=== PATIENT | male | born 1945 | race Caucasian/White ===

== ENCOUNTER 2019-09-03 10:31 | Outpatient (CLI) | payer MEDICARE, OTHER, SELFPAY ==
[2019-09-04 15:22] LABS: COVID-19 RT-PCR Result NEGATIVE (Negative)
== END 2019-09-03 10:51 ==
PROVIDERS: Visit Provider Family Medicine
DX: Z03.818 Encounter for observation for suspected exposure to other biological agents ruled out (principal)
CPT/HCPCS: U0003

== ENCOUNTER 2020-12-23 21:20 | Outpatient (CLI) | payer MEDICARE, OTHER, SELFPAY ==
--- NOTE | 2020-12-23 | DI.RAD_ITS ---
Exam(s) XR HEEL LT OS CALCIS EXAM: XR HEEL LT OS CALCIS CLINICAL HISTORY: PLANTAR FASCITIS, M72.2, PAIN. TECHNIQUE: 2D digital imaging was performed. COMPARISON: No exams were available for comparison FINDINGS: BONES: No acute fracture is present. No bony destructive lesion is seen. There is a minimal enthesop hyte at the Achilles insertion on the calcaneus. There is a small spur at the plantar fascial insert ion. JOINTS: No dislocation present. SOFT TISSUE: Normal. IMPRESSION: Small heel spurs. DATA REPOSITORY: RADIATION DOSE DELIVERED:
== END 2020-12-23 21:40 ==
PROVIDERS: Visit Provider Family Medicine
DX: M72.2 Plantar fascial fibromatosis (principal); M77.32 Calcaneal spur, left foot
CPT/HCPCS: 73650

== ENCOUNTER 2023-12-10 12:54 | Emergency (ER) | payer OTHER, SELFPAY ==
[2023-12-10 13:04] VITALS: BP 123/70; PULSE 65; RESP 15; TEMP 36.3; O2SAT 96
--- NOTE | 2023-12-10 13:15 | DI.CT_ITS ---
Exam(s) CT LUMBAR SPINE WO EXAM: CT LUMBAR SPINE WO CLINICAL HISTORY: low back pain, eval fracture, stenosis. TECHNIQUE: Imaging Protocol: Axial computed tomography images with coronal and sagittal reformatted images were created and reviewed COMPARISON: No exams were available for comparison FINDINGS: Bones: The last intervertebral disc space is designated the L5/S1 level for the numbering purpose of this examination. The vertebral body heights are well maintained. Endplate osteophytes are noted throughout. Alignment is satisfactory. No fracture is seen. T12-L1: No disc herniations or bulges are present. L1-2: No disc herniations or bulges are present. L2-3: No disc herniations or bulges are present. L3-4: Minimal disc bulging. L4-5: mild loss of disc height. Vacuum phenomenon. Mild to moderate disc bulging. No significant central canal stenosis. Bilateral neural foraminal narrowing. L5-S1: Minimal disc bulging. The visualized SI joints and sacrum are well maintained. Soft Tissues: The paraspinal soft tissues are unremarkable. Prostate is enlarged. Mild bladder wa ll thickening. Atherosclerotic changes in the aorta and iliac arteries. IMPRESSION: No evidence of fracture. Degenerative disc changes at L 4 5 cause bilateral neural foraminal narrowing. RADIATION DOSE DELIVERED: Total DLP DATA REPOSITORY: All CT scans at this facility are submitted to the National Radiology Data Registry (NRDR) Dose Index Registry (DIR) with the [employer] (A[employer]). RADIATION OPTIMIZATION: All CT scans at this facility use at least one of these dose optimization te chniques: automated exposure control; mA and/or kV adjustment per patient size (includes targeted exa ms where dose is matched to clinical indication); or iterative reconstruction.
[2023-12-10] MEDS: Lidocaine 5% Patch 1 PATCH TP (13:35)
[2023-12-10] MEDS: Ketorolac 15 MG/ML VIAL IVP (13:35)
[2023-12-10] MEDS: Acetaminophen 500 MG TAB 1000 MG PO (13:35)
[2023-12-10 13:51] LABS: Abs Immature Grans 0.01 10^3/uL (0.0-0.06); Absolute Basophil Count 0.03 10^3/uL (0.0-0.2); Absolute Eosinophil Count 0.12 10^3/uL (0.0-0.7); Absolute Lymphocyte Count 1.92 10^3/uL (1.2-3.4); Absolute Neutrophil Count 2.42 10^3/uL (1.2-6.7); Basophils % 0.6 %; Eosinophils % 2.5 %; HCT 40.4 % (40.0-50.0); HGB 13.8 g/dL (13.5-17.5); Immature Grans % 0.2 %; MCH 31.4 pg (27.0-33.0); MCHC 34.2 % (32.0-36.0); MCV 92 fL (80-95); MPV 10.1 fL (8.0-11.0); Monocytes % 6.3 %; Neutrophils % 50.4 %; Platelet Count 167 10^3/uL (130-400); RBC 4.39 10^6/uL (4.36-5.78); RDW 11.9 % (11.8-14.1); RDW-SD 41.2 fL
--- NOTE | 2023-12-10 13:59 | ED.GENADUL_ITS ---
Discharge Plan Disposition Patient Disposition: Home Condition: Stable Discharge Details Clinical Impression: Back pain Primary Care Provider: Laurent Gordon ED Provider: Balbina Blackburn Home Meds and New Rx's Prescriptions: New methocarbamol 750 mg tablet 1,500 mg PO Q8H PRNQty: 10 0RF lidocaine 5 % adhesive patch,medicated 1 patch topical DAILY Qty: 30 0RF Rx Instructions: leave on most painful area for up to 12 hrs No Action atenolol 25 mg tablet 12.5 mg PO DAILY niacin 500 mg capsule, extended release 500 mg PO QHS Repatha SureClick 140 mg/mL pen injector 140 mg subcut Q2W collagen (bovine) 100 % powder in packet 1 packet topical DAILY cholecalciferol (vitamin D3) 10 mcg (400 unit) capsule 10 mcg PO DAILY B-complex with vitamin C Tablet 1 tab PO DAILY multivitamin [Daily Multi-Vitamin] 1 EACH tablet 1 ea PO DAILY aspirin [Aspir-81] 81 MG tablet,delayed release (DR/EC) 81 mg PO DAILY tamsulosin 0.4 MG capsule 0.4 mg PO DAILY lisinopril 10 MG tablet 10 mg PO DAILY Fish Oil 1 EACH capsule 1 ea PO BID rosuvastatin 20 mg tablet 20 mg PO DAILY Patient Comments: TAKE ONE TABLET BY MOUTH ONCE WEEKLY IF TOLERATED MAY INCREASE TO TWICE PER WEEK Discharge Instructions Instructions: Low Back Pain ED Additional Instructions: You were seen in the emergency department today for evaluation of low back pain. In our department you have a full physical examination performed, received medications for pain and had a CT scan performed. The CT scan shows stenosis and some degenerative changes but no fractures or other concerning findings. It is safe to go home and continue to take all of your medications as prescribed, and follow-up with the [facility]. Thank you for allowing us to be part of your care. HPI General Mode of arrival: ambulatory . Date/Time Provider Initiated Documentation: 12/10/23 13:15 . Limitations to Documentation: no limitations . Information obtained by: patient, family and old records reviewed . HPI Narrative: MDM: This is a 78-year-old male patient presenting for evaluation of 1 month of persistent low back pain. My differential includes but is not limited to lumbosacral strain, spinal stenosis, spondylosis/spinal nerve root compression. I did consider compression fracture and occult fracture, no specific trauma to suggest dislocation. The patient has no red flag symptoms or risk factors for cauda equina, spinal epidural abscess, osteomyelitis/discitis. The patient is without CVA tenderness or urinary symptoms to significantly increase my concern for nephrolithiasis, pyelonephritis/UTI, and has no abdominal tenderness or hemodynamic instability to increase my concern for aortic pathology. Will obtain basic laboratory studies to include CBC, CMP, and urinalysis. I did shared decision-making conversation with the patient regarding imaging, and at this time we will proceed with a Noncon CT scan of his lumbar spine to evaluate for any osseous abnormalities. I will provide him with a dose of Tylenol, Toradol, and a lidocaine patch for initial pain management. ED Course: I independently interpreted the laboratory studies, which show no s ignificant leukocytosis, anemia, or thrombocytopenia. The chemistry panel is without evidence of electrolyte abnormality, kidney dysfunction, or liver injury. Urinalysis is without evidence of infection, nor hematuria. I reviewed the patient's CT scan, which does show some changes in the L4/L5 disc space, radiologist read concerning for spinal stenosis and spondylosis, no acute infections or fractures identified by the radiologist. I provided the patient with a prescription for Robaxin and lidocaine patches, and at this time, the patient has had a full medical evaluation and is safe for discharge to home. They are hemodynamically stable, ambulatory, and tolerating PO. They are understanding of the follow-up plan and return precautions. They left our facility without incident. Balbina Blackburn MD HPI: This is a 78-year-old male patient with a past medical history significant for low back pain, rotator cuff tear, hyperlipidemia, presenting for evaluation of acute on chronic worsening of his low back pain. The patient reports that he is typically seen down in [place], has had numerous episodes of low back pain, that typically resolve with a epidural steroid injection. He reports that approximately 1 month ago after a long day of golf he started to have worsening of his lower back pain, located on the right side, and states that it did not improve with rest as it typically does. The patient reports that he has been utilizing ibuprofen as needed for pain, with some improvement but not resolution. The patient resides here for the summer, will be returning back to [place] in January. The patient reports that his pain is worsened with movement, supine positioning, and he has noted improvement when he leans forward. The patient has not sustained trauma or injury. He has not had fevers or chills, denies bowel or bladder dysfunction and specifically is without new urinary retention or fecal incontinence. He has not noted any radiation of the pain into his legs, has not noted any numbness, tingling, or weakness of his lower extremities and does not have saddle anesthesia. Exam: Gen: Awake and alert, in no apparent distress HEENT: Non-icteric sclera Neck: Supple Lungs: No apparent respiratory distress, normal respiratory effort. CV: Appears well perfused Abdomen: Non-distended, soft, nontender MSK: Moves 4 extremities without apparent limitation in ROM. The patient has no midline tenderness to palpation of the C/T/L-spine. No significant tenderness to palpation of the paraspinal muscles bilaterally, full range of motion of the lumbar spine appreciated with improvement in pain with far forward flexion. Skin: Visualized skin without rashes, cyanosis. No vesicular rash appreciated in the area of pain. Neuro: Normal Gait, no obvious focal deficits or facial asymmetry. 5 out of 5 strength x 4 extremities, no sensory deficits. Speaks in full, clear sentences. Psych: Appropriate for situation. Related Data Home Medications ?Medication ?Instructions ?Recorded ?Confirmed Aspir-81 81 mg tablet,delayed 81 mg PO DAILY 12/04/13 12/10/23 release (aspirin) Daily Multi-Vitamin (multivitamin) 1 ea PO DAILY 12/04/13 12/10/23 Fish Oil 340 mg-1,000 mg capsule 1 ea PO BID 12/04/13 12/10/23 (omega-3 fatty acids-fish oil) lisinopril 10 mg tablet 10 mg PO DAILY 12/04/13 12/10/23 tamsulosin 0.4 mg capsule 0.4 mg PO DAILY 12/04/13 12/10/23 atenolol 25 mg tablet 12.5 mg PO DAILY 08/30/22 12/10/23 evolocumab 140 mg/mL subcutaneous 140 mg subcut Q2W 08/30/22 12/10/23 pen injector (Javier Blackmon) niacin 500 mg capsule,extended 500 mg PO QHS 08/30/22 12/10/23 release B-complex with vitamin C 1 tab PO DAILY 11/09/22 12/10/23 cholecalciferol (vitamin D3) 10 10 mcg PO DAILY 11/09/22 12/10/23 mcg (400 unit) capsule collagen (bovine) 100 % topical 1 packet topical DAILY 11/09/22 12/10/23 powder in packet lidocaine 5 % topical patch 1 patch topical DAILY #30 ea 12/10/23 methocarbamol 750 mg tablet 1,500 mg (2 x 750 mg) PO Q8H PRN 12/10/23 #10 tabs rosuvastatin 20 mg tablet 20 mg PO DAILY 12/10/23 12/10/23 Previous Rx's ?Medication ?Instructions ?Recorded lidocaine 5 % topical patch 1 patch topical DAILY #30 ea 12/10/23 methocarbamol 750 mg tablet 1,500 mg (2 x 750 mg) PO Q8H PRN 12/10/23 #10 tabs Allergies Allergy/AdvReac Type Severity Reaction Status Date / Time [id number] Reductase AdvReac Elev. CPK Unverified 12/10/23 14:35 Inhibitor (Jfirjdh-[id number]-Wek secondary Reductase Inhibitor) to myocytis General Stated Complaint: Nk/Back Pain ALFRED: 4 Course Vital Signs Vital signs: Vital Signs Temperature 36.3 C L 12/10/23 13:04 Pulse 65 12/10/23 13:04 Respiratory Rate 15 12/10/23 13:04 Blood Pressure 123/70 12/10/23 13:04 Pulse Oximetry 96 12/10/23 13:04 Temperature 36.3 C L 12/10/23 13:04 Pulse 65 12/10/23 13:04 Respiratory Rate 15 12/10/23 13:04 Respiratory Effort Normal 12/10/23 13:07 Blood Pressure 123/70 12/10/23 13:04 Blood Pressure Position Sitting 12/10/23 13:04 Pulse Oximetry 96 12/10/23 13:04 Oxygen Delivery Method Room Air 12/10/23 13:04 Oxygen Flow Rate 0 12/10/23 13:04 Pain Level 10 12/10/23 13:04 Lab/Test Results Lab/Test Results: Laboratory Tests Range/Units 12/10/23 13:44 WBC (4.4-10.8) 10^3/uL 4.80 RBC (4.36-5.78) 10^6/uL 4.39 Hgb (13.5-17.5) g/dL 13.8 Hct (40.0-50.0) % 40.4 MCV (80-95) fL 92 MCH (27.0-33.0) pg 31.4 MCHC (32.0-36.0) % 34.2 RDW (11.8-14.1) % 11.9 Plt Count (130-400) 10^3/uL 167 MPV (8.0-11.0) fL 10.1 Immature Gran % % 0.2 Neutrophils % % 50.4 Lymphocytes % % 40.0 Monocytes % % 6.3 Eosinophils % % 2.5 Basophils % % 0.6 Nucleated RBC % (0.0-0.3) % 0.0 Absolute Neutrophils (1.2-6.7) 10^3/uL 2.42 Absolute Lymphocytes (1.2-3.4) 10^3/uL 1.92 Absolute Monocytes (0.1-0.8) 10^3/uL 0.30 Absolute Eosinophils (0.0-0.7) 10^3/uL 0.12 Absolute Basophils (0.0-0.2) 10^3/uL 0.03 Medical Decision Making Quality:SDOH Health Related Social Needs: No Data to Display PFSH All Active Problems (Updated 12/10/23 @ 16:09 by Balbina Blackburn MD) Left rotator cuff tear (Acute) Arthritis of left shoulder region (Acute) Spondylosis of lumbar region without myelopathy or radiculopathy (Acute) Back pain (Acute) Social History Smoking/Tobacco Use Status: Former Tobacco Use Smoking risk assessment performed?: Yes Current gender identity: male PAWSS Have you Been Recently Intoxicated or Drunk Within the Last 30 days?: No Have you Ever Experienced Previous Episodes of Alcohol Withdrawal?: No Have you ever Experienced Withdrawal Seizures?: No Have you ever Experienced Delirium Tremens(DT)s?: No Have you ever undergone Alcohol Rehabilitation Treatment (i.e, inpt ot outpatient treatment programs)?: No Have you ever Experienced Blackouts?: No Have you ever Combined Alcohol with other Downers within the last 90 days?: No Have you ever Combined Alcohol with any other Substance of Abuse during the last 90 days?: No Positive Blood Alcohol level on Presentation? [PCS.BAL]: No Evidence of Increased Autonomic Activity (i.e. HR>120, tremor, sweating, agitation, nausea)?: No Result: 0
[2023-12-10 14:08] LABS: ALT 54 U/L (16-63); AST 41 U/L (15-37); Albumin 3.6 g/dL (3.4-5.0); Alkaline Phosphatase 63 U/L (46-116); Anion Gap 9.1 mmol/L (3-11); BUN 20 mg/dL (7-18); CO2 26.9 mmol/L (21.0-32.0); CREATININE 0.9 mg/dL (0.70-1.30); Calcium 8.9 mg/dL (8.5-10.1); Chloride 103 mmol/L (98-107); Estimated GFR 88.51 (mL/min/1.73m2); Glucose 176 mg/dL (74-106); Magnesium 1.9 mg/dL (1.8-2.4); Potassium 3.9 mmol/L (3.5-5.1); Sodium 139 mmol/L (136-145)
[2023-12-10 15:05] LABS: Bilirubin Negative (Negative); Blood Negative (Negative); Clarity Clear (Clear); Glucose Negative (Negative); Ketones Negative (Negative); Leukocyte Esterase Negative (Negative); Nitrite Negative (Negative); Specific Gravity >= 1.030 (1.005-1.025); Urobilinogen 0.2 mg/dL (Up to 0.2)
[2023-12-10] MEDS: Methocarbamol 500 MG TAB 1500 MG PO (15:21)
--- NOTE | 2023-12-10 16:26 | DI.VRAD_ITS ---
PROCEDURE INFORMATION: Exam: CT Lumbar Spine Without Contrast Exam date and time: 12/10/2023 2:12 PM Age: 78 years old Clinical indication: Other: Low back pain, eval fracture, stenosis TECHNIQUE: Imaging protocol: Computed tomography of the lumbar spine without contrast. COMPARISON: No relevant prior studies available. FINDINGS: Bones/joints: Vertebral body height well preserved. No evidence for fracture. There is moderate spondylosis L4-L5 with mild stenosis. No focal protrusion. Gallbladder and biliary ducts: Gallbladder contracted. Reproductive: Prostate enlarged, 5.0 cm. Vasculature: Severe atherosclerotic change present in the vasculature. Soft tissues: Unremarkable. Other findings: Respiratory motion noted. IMPRESSION: Mild spondylosis and stenosis L4-L5. No evidence for fracture. Dictated and Authenticated by: Marce Sevilla MD. Ordering:ANASTACIA Levi MD
== END 2023-12-10 16:37 | disposition home or self-care (01) ==
PROVIDERS: Emergency Provider Emergency Medicine; PCP Internal Medicine
DX: M54.50 Low back pain, unspecified (principal)
CPT/HCPCS: 80053; 96374; 99284; 72131; 81003; 83735; 85025; J1885